=== PATIENT | male | born 2000 | race Caucasian/White ===

== ENCOUNTER 2024-12-08 19:11 | Emergency (ER) | payer MEDICAID ==
[~2024-12-08] VITALS: Ht 170.2 cm; Wt 114.6 kg
[~2024-12-08 19:11] MED LIST: DIVA-112 PO; LITH300C3 PO
[2024-12-08 19:53] VITALS: TEMP 98.1
[2024-12-08 19:54] LABS: COVID AG,FIA SOURCE NPH
[2024-12-08 19:58] LABS: PLATELET COUNT (AUTO) 253 K/uL (150-450); RED BLOOD CELL COUNT(AUTO) 4.47 MIL/uL (4.50-5.90); RED CELL DISTRIBUTION WIDTH 13.6 % (11.5-14.5); WHITE BLOOD COUNT (AUTO) 7.7 K/uL (4.5-11.0)
[2024-12-08 20:06] LABS: CALCIUM, TOTAL 9.2 mg/dL (8.8-10.5); CREATININE 0.90 mg/dL (0.60-1.30); GLOMERULAR FILTR. RATE CALC > 60 mL/min (>60); GLUCOSE,RANDOM 95 mg/dL (70-110); SODIUM SERUM 142 mmol/L (136-145); UREA NITROGEN, BLOOD 9 mg/dL (7-18)
[2024-12-08 20:12] LABS: VALPROIC ACID 85 mcg/mL (50-100)
[2024-12-08 20:13] LABS: AMPHET/METH SCREEN,URINE NEGATIVE (NEGATIVE); BARBITURATE SCREEN, URINE NEGATIVE (NEGATIVE); CANNABINOID SCREEN,URINE NEGATIVE (NEGATIVE); COCAINE SCREEN,URINE NEGATIVE (NEGATIVE); METHADONE SCREEN, URINE NEGATIVE (NEGATIVE)
[2024-12-08 20:14] LABS: SARS-COV2 (COVID) ANTIGEN,FIA Negative (Negative)
[2024-12-08 20:15] LABS: ALCOHOL, BLOOD (SERUM) < 3 mg/dL (0-10)
[2024-12-08 20:15] LABS: ALCOHOL, URINE DRUG SCREEN NEGATIVE (NEGATIVE)
[2024-12-08 20:17] LABS: APPEARANCE,URINE CLEAR (CLEAR); GLUCOSE, URINE (UA) NEGATIVE (NEGATIVE); LEUKOCYTE ESTERASE ,URINE NEGATIVE (NEGATIVE); NITRATE,URINE NEGATIVE (NEGATIVE); OCCULT BLOOD,URINE NEGATIVE (NEGATIVE); PH,URINE DRUG SCREEN 7.0 (5.0-8.0); SPECIFIC GRAVITIY, URINE 1.009 (1.003-1.030)
[2024-12-08] MEDS ORDERED: DIVA-112 PO (21:57)
[2024-12-08] MEDS ORDERED: ZIPR80CA9 PO (21:57)
[2024-12-08] MEDS: LITHIUM CARBONATE 300 MG TABLET PO ONE (23:42)
[2024-12-09] MEDS: VALPROIC ACID 250 MG CAPSULE PO ONE (00:24)
[2024-12-09 05:30] VITALS: BP 15/75; PULSE 92; RESP 16; O2SAT 99
[2024-12-10] MEDS ORDERED: LITH300T PO (11:11)
== END 2024-12-09 06:37 | disposition admitted as inpatient to this hospital (09) ==
LOC: EMS 19:11
DX: F33.2 Major depressive disorder, recurrent severe without psychotic features (principal); R45.851 Suicidal ideations; F20.9 Schizophrenia, unspecified; Z79.899 Other long term (current) drug therapy; Z88.0 Allergy status to penicillin; Z88.8 Allergy status to other drugs, medicaments and biological substances; Z20.822 Contact with and (suspected) exposure to COVID-19
CPT/HCPCS: 99285; 87426; 80048; 80164; 80178; 85025; 36415; 80307; 81003; G0480

== ENCOUNTER 2025-01-05 23:03 | Emergency (ER) | payer MEDICAID ==
[~2025-01-05] VITALS: Ht 177.8 cm; Wt 109.1 kg
[~2025-01-05 23:03] MED LIST changes: +CLOZ100T61 PO; +CLOZ25TA52 PO; -DIVA-112 PO; +DIVA-153 PO
[2025-01-05 23:22] LABS: COVID AG,FIA SOURCE NASAL SWAB
[2025-01-05 23:26] LABS: APPEARANCE,URINE CLEAR (CLEAR); GLUCOSE, URINE (UA) NEGATIVE (NEGATIVE); LEUKOCYTE ESTERASE ,URINE NEGATIVE (NEGATIVE); NITRATE,URINE NEGATIVE (NEGATIVE); OCCULT BLOOD,URINE NEGATIVE (NEGATIVE); PH,URINE DRUG SCREEN 7.5 (5.0-8.0); SPECIFIC GRAVITIY, URINE 1.006 (1.003-1.030)
[2025-01-05 23:26] LABS: PLATELET COUNT (AUTO) 222 K/uL (150-450); RED BLOOD CELL COUNT(AUTO) 4.29 MIL/uL (4.50-5.90); RED CELL DISTRIBUTION WIDTH 14.2 % (11.5-14.5); WHITE BLOOD COUNT (AUTO) 7.6 K/uL (4.5-11.0)
[2025-01-05 23:33] LABS: AMPHET/METH SCREEN,URINE NEGATIVE (NEGATIVE); BARBITURATE SCREEN, URINE NEGATIVE (NEGATIVE); CANNABINOID SCREEN,URINE NEGATIVE (NEGATIVE); COCAINE SCREEN,URINE NEGATIVE (NEGATIVE); METHADONE SCREEN, URINE NEGATIVE (NEGATIVE)
[2025-01-05 23:34] LABS: CALCIUM, TOTAL 9.5 mg/dL (8.8-10.5); CREATININE 0.91 mg/dL (0.60-1.30); GLOMERULAR FILTR. RATE CALC > 60 mL/min (>60); GLUCOSE,RANDOM 99 mg/dL (70-110); SODIUM SERUM 140 mmol/L (136-145); UREA NITROGEN, BLOOD 11 mg/dL (7-18)
[2025-01-05 23:36] LABS: ALCOHOL, URINE DRUG SCREEN NEGATIVE (NEGATIVE)
[2025-01-05 23:42] LABS: SARS-COV2 (COVID) ANTIGEN,FIA Negative (Negative)
[2025-01-06 01:24] LABS: VALPROIC ACID 59.0 mcg/mL (50-100)
[2025-01-06 12:30] VITALS: TEMP 97.5
[2025-01-06 17:28] VITALS: BP 132/65; PULSE 114; RESP 18; O2SAT 98
== END 2025-01-06 18:50 ==
LOC: EMS 23:22
DX: F25.1 Schizoaffective disorder, depressive type (principal); F33.2 Major depressive disorder, recurrent severe without psychotic features; R45.851 Suicidal ideations; G40.909 Epilepsy, unspecified, not intractable, without status epilepticus; Z88.8 Allergy status to other drugs, medicaments and biological substances; Z88.0 Allergy status to penicillin; Z79.899 Other long term (current) drug therapy; Z20.822 Contact with and (suspected) exposure to COVID-19
CPT/HCPCS: 99283; 87426; 80048; 80164; 80178; 81003; 85025; 36415; 80307; G0480

== ENCOUNTER 2025-01-31 20:45 | Emergency (ER) | payer MEDICAID ==
[~2025-01-31] VITALS: Ht 170.2 cm; Wt 113.6 kg
[2025-01-31 21:30] VITALS: TEMP 98.005280
[2025-01-31 22:45] LABS: APPEARANCE,URINE CLEAR (CLEAR); GLUCOSE, URINE (UA) NEGATIVE (NEGATIVE); LEUKOCYTE ESTERASE ,URINE NEGATIVE (NEGATIVE); NITRATE,URINE NEGATIVE (NEGATIVE); OCCULT BLOOD,URINE NEGATIVE (NEGATIVE); PH,URINE DRUG SCREEN 7.0 (5.0-8.0); SPECIFIC GRAVITIY, URINE 1.009 (1.003-1.030)
[2025-01-31 22:52] LABS: AMPHET/METH SCREEN,URINE NEGATIVE (NEGATIVE); BARBITURATE SCREEN, URINE NEGATIVE (NEGATIVE); CANNABINOID SCREEN,URINE NEGATIVE (NEGATIVE); COCAINE SCREEN,URINE NEGATIVE (NEGATIVE); METHADONE SCREEN, URINE NEGATIVE (NEGATIVE)
[2025-01-31 23:03] LABS: ALCOHOL, URINE DRUG SCREEN NEGATIVE (NEGATIVE)
[2025-01-31 23:05] LABS: PLATELET COUNT (AUTO) 243 K/uL (150-450); RED BLOOD CELL COUNT(AUTO) 4.30 MIL/uL (4.50-5.90); RED CELL DISTRIBUTION WIDTH 13.9 % (11.5-14.5); WHITE BLOOD COUNT (AUTO) 8.4 K/uL (4.5-11.0)
[2025-01-31 23:17] LABS: CALCIUM, TOTAL 8.8 mg/dL (8.8-10.5); CREATININE 0.96 mg/dL (0.60-1.30); GLOMERULAR FILTR. RATE CALC > 60 mL/min (>60); GLUCOSE,RANDOM 105 mg/dL (70-110); SODIUM SERUM 140 mmol/L (136-145); UREA NITROGEN, BLOOD 11 mg/dL (7-18)
[2025-01-31 23:26] LABS: COVID AG,FIA SOURCE NASAL SWAB
[2025-02-01 00:01] LABS: SARS-COV2 (COVID) ANTIGEN,FIA Negative (Negative)
[2025-02-01] MEDS: LURASIDONE HCL 40 MG TABLET PO ONE (02:14)
[2025-02-01 03:25] VITALS: BP 121/80; PULSE 72; RESP 18; O2SAT 97
== END 2025-02-01 03:40 | disposition home or self-care (01) ==
LOC: EMS 20:45
DX: F25.1 Schizoaffective disorder, depressive type (principal); R45.851 Suicidal ideations; F32.A Depression, unspecified; Z79.899 Other long term (current) drug therapy; Z88.0 Allergy status to penicillin; Z88.8 Allergy status to other drugs, medicaments and biological substances; Z20.822 Contact with and (suspected) exposure to COVID-19
CPT/HCPCS: 99284; 87426; 80048; 81003; 85025; 36415; 80307; G0480

== ENCOUNTER 2025-04-20 15:20 | Inpatient (IN) | payer MEDICAID ==
[~2025-04-20] VITALS: Ht 172.7 cm; Wt 107.0 kg
[2025-04-20 15:21] VITALS: O2SAT 98
[2025-04-20 15:46] LABS: PLATELET COUNT (AUTO) 247 K/uL (150-450); RED BLOOD CELL COUNT(AUTO) 4.18 MIL/uL (4.50-5.90); RED CELL DISTRIBUTION WIDTH 14.3 % (11.5-14.5); WHITE BLOOD COUNT (AUTO) 7.7 K/uL (4.5-11.0)
[2025-04-20 15:54] LABS: CALCIUM, TOTAL 9.1 mg/dL (8.8-10.5); CREATININE 0.84 mg/dL (0.60-1.30); GLOMERULAR FILTR. RATE CALC > 60 mL/min (>60); GLUCOSE,RANDOM 104 mg/dL (70-110); SODIUM SERUM 142 mmol/L (136-145); UREA NITROGEN, BLOOD 7 mg/dL (7-18)
[2025-04-20 16:02] LABS: COVID AG,FIA SOURCE NASAL SWAB
[2025-04-20 16:36] LABS: SARS-COV2 (COVID) ANTIGEN,FIA Negative (Negative)
[2025-04-20 16:47] LABS: APPEARANCE,URINE CLEAR (CLEAR); GLUCOSE, URINE (UA) NEGATIVE (NEGATIVE); LEUKOCYTE ESTERASE ,URINE NEGATIVE (NEGATIVE); NITRATE,URINE NEGATIVE (NEGATIVE); OCCULT BLOOD,URINE NEGATIVE (NEGATIVE); PH,URINE DRUG SCREEN 7.0 (5.0-8.0); SPECIFIC GRAVITIY, URINE 1.018 (1.003-1.030)
[2025-04-20 17:11] LABS: ALCOHOL, URINE DRUG SCREEN NEGATIVE (NEGATIVE); AMPHET/METH SCREEN,URINE NEGATIVE (NEGATIVE); BARBITURATE SCREEN, URINE NEGATIVE (NEGATIVE); CANNABINOID SCREEN,URINE NEGATIVE (NEGATIVE); COCAINE SCREEN,URINE NEGATIVE (NEGATIVE); METHADONE SCREEN, URINE NEGATIVE (NEGATIVE)
[2025-04-20] MEDS ORDERED: ZIPR40CA38 PO (20:54)
[2025-04-20] MEDS ORDERED: ZOLP-162 PO (20:54)
[2025-04-20] MEDS ORDERED: POLY17PO47 PO (20:54)
[2025-04-20] MEDS ORDERED: DOCU-412 PO (20:54)
[2025-04-20] MEDS ORDERED: LITH600C5 PO (20:54)
[2025-04-20] MEDS ORDERED: PRAZ1 PO (20:54)
[2025-04-20] MEDS ORDERED: LEVO50 PO (20:54)
[2025-04-20] MEDS ORDERED: ATOR20TA PO (20:54)
[2025-04-20] MEDS: ZOLPIDEM TARTRATE 10 MG TABLET PO ONE (21:18)
[2025-04-21 00:24] VITALS: BP 137/74; PULSE 92; RESP 18; TEMP 98; O2SAT 100
[2025-04-21 09:39] VITALS: BP 119/73; PULSE 80; RESP 16; TEMP 97.9; O2SAT 99
[2025-04-21] MEDS ORDERED: ONDANSETRON 4 MG TABLET PO PRN (10:15)
[2025-04-21] MEDS ORDERED: DOCUSATE SODIUM 100 MG CAPSULE PO PRN (10:15)
[2025-04-21] MEDS ORDERED: ACETAMINOPHEN 325 MG TABLET PO PRN (10:15)
[2025-04-21] MEDS ORDERED: OMEPRAZOLE 20 MG CAPSULE PO PRN (10:15)
[2025-04-21] MEDS ORDERED: ALBUTEROL SULFATE HFA 90 MCG/PUFF 8 GM INHALER IH PRN (10:15)
[2025-04-21] MEDS ORDERED: BACITRACIN 28 GM OINTMENT TP PRN (10:15)
[2025-04-21] MEDS ORDERED: PETROLATUM,WHITE 28 GM JELLY TP PRN (10:15)
[2025-04-21] MEDS ORDERED: LOPERAMIDE HCL 2 MG CAPSULE PO PRN (10:15)
[2025-04-21] MEDS ORDERED: BENZOCAINE/MENTHOL [CEPACOL] LOZENGE PO PRN (10:15)
[2025-04-21] MEDS ORDERED: MAG HYDROX/ALUMINUM HYD/SIMETH ES 30 ML SUSPENSION UDCUP PO PRN (10:15)
[2025-04-21] MEDS ORDERED: MAGNESIUM HYDROXIDE SUSPENSION 30 ML UDCUP PO PRN (10:15)
[2025-04-21] MEDS ORDERED: IBUPROFEN 600 MG TABLET PO PRN (10:15)
[2025-04-21] MEDS: LITHIUM CARBONATE 600 MG CAPSULE PO SCH (16:34)
[2025-04-21] MEDS: DIVALPROEX SODIUM 500 MG DR TABLET PO SCH (16:34)
[2025-04-21 20:13] VITALS: BP 110/69; PULSE 76; RESP 17; TEMP 98; O2SAT 96
[2025-04-21] MEDS ORDERED: DIVALPROEX SODIUM 500 MG ER TABLET PO SCH (21:00)
[2025-04-21] MEDS: ZOLPIDEM TARTRATE 10 MG TABLET PO PRN (21:26)
[2025-04-22] MEDS: LEVOTHYROXINE SODIUM 50 MCG TABLET PO SCH (06:28)
[2025-04-22] MEDS: ATORVASTATIN CALCIUM 20 MG TABLET PO SCH (08:11)
[2025-04-22 10:13] LABS: ASPARTATE AMINOTRANSFERASE 24 U/L (15-37); CALCIUM, TOTAL 8.9 mg/dL (8.8-10.5); CHOL/HDL RATIO 4.4 (4.2-7.3); CREATININE 0.65 mg/dL (0.60-1.30); GLOMERULAR FILTR. RATE CALC > 60 mL/min (>60); GLUCOSE,RANDOM 110 mg/dL (70-110); SODIUM SERUM 142 mmol/L (136-145); TOTAL PROTEIN, SERUM 7.0 g/dL (6.4-8.2); UREA NITROGEN, BLOOD 7 mg/dL (7-18); VALPROIC ACID 18 mcg/mL (50-100)
[2025-04-22 14:04] VITALS: BP 117/62; RESP 15; TEMP 98.6; O2SAT 98
[2025-04-22 20:14] VITALS: BP 125/88; PULSE 105; RESP 18; TEMP 98.3; O2SAT 98
[2025-04-23 08:09] VITALS: RESP 18
[2025-04-23 09:51] LABS: PLATELET COUNT (AUTO) 234 K/uL (150-450); RED BLOOD CELL COUNT(AUTO) 4.05 MIL/uL (4.50-5.90); RED CELL DISTRIBUTION WIDTH 14.0 % (11.5-14.5); WHITE BLOOD COUNT (AUTO) 8.0 K/uL (4.5-11.0)
[2025-04-23 20:08] VITALS: BP 128/69; PULSE 96; RESP 18; TEMP 98.1; O2SAT 100
[2025-04-24 08:32] VITALS: BP 129/73; PULSE 95; RESP 18; TEMP 97.9; O2SAT 96
[2025-04-24] MEDS: DIVALPROEX SODIUM 500 MG DR TABLET PO SCH (17:10)
[2025-04-24 20:18] VITALS: BP 116/91; PULSE 106; RESP 18; TEMP 98.1; O2SAT 99
[2025-04-25 09:30] VITALS: RESP 18
[2025-04-25 20:11] VITALS: BP 128/60; PULSE 99; RESP 18; TEMP 97.7; O2SAT 98
[2025-04-26 08:18] VITALS: BP 125/83; PULSE 82; RESP 18; TEMP 98.1; O2SAT 95
[2025-04-26 09:33] LABS: VALPROIC ACID 53.0 mcg/mL (50-100)
[2025-04-26 20:02] VITALS: BP 124/69; PULSE 71; RESP 18; TEMP 97.4; O2SAT 100
[2025-04-27 08:14] VITALS: RESP 18
[2025-04-27 20:10] VITALS: BP 136/79; PULSE 94; RESP 18; TEMP 97.5; O2SAT 97
[2025-04-28 08:26] VITALS: BP 139/71; PULSE 98; RESP 18; TEMP 97.9; O2SAT 100
[2025-04-28] MEDS ORDERED: DIVA-153 PO (09:44)
[2025-04-28] MEDS ORDERED: CLOZ100T61 PO ×2 (09:45)
[2025-04-28] MEDS ORDERED: LITH600C5 PO (09:48)
[2025-04-28] MEDS ORDERED: LEVO50TA4 PO (16:28)
== END 2025-04-28 17:51 | DRG 761 ==
LOC: EMS 15:22 → B3A 23:04
PROVIDERS: ADMIT Psychiatry & Neurology Psychiatry; ATTEND Psychiatry & Neurology Psychiatry
DX: F25.9 Schizoaffective disorder, unspecified (principal); R45.851 Suicidal ideations; E03.9 Hypothyroidism, unspecified; E66.9 Obesity, unspecified; G40.909 Epilepsy, unspecified, not intractable, without status epilepticus; S71.112A Laceration without foreign body, left thigh, initial encounter; Z20.822 Contact with and (suspected) exposure to COVID-19; F41.9 Anxiety disorder, unspecified; G47.00 Insomnia, unspecified; E78.5 Hyperlipidemia, unspecified; X58.XXXA Exposure to other specified factors, initial encounter; Z91.199 Patient's noncompliance with other medical treatment and regimen due to unspecified reason; Y93.89 Activity, other specified; Y92.89 Other specified places as the place of occurrence of the external cause; Y99.8 Other external cause status; Z68.35 Body mass index [BMI] 35.0-35.9, adult
CPT/HCPCS: 80048; 80053; 80061; 80164; 80178; 80307; 81003; 83036; 84443; 85025; 99285; G0480